=== PATIENT | male | born 1950 | race Two or more races ===

== ENCOUNTER 2016-05-20 15:49 | Emergency (ER) | payer OTHER ==
--- NOTE | 2016-05-20 16:04 | CPEKG ---
Heart Rate: 86 RR Interval: 698 P-R Interval: 124 QRSD Interval: 84 QT Interval: 336 QTC Interval: 402 P [place]: 76 QRS [place]: 32 T Wave [place]: 38 EKG Severity - NORMAL ECG - EKG Impression: SINUS RHYTHM Electronically Signed By: Young Putnam 20-May-2016 22:23:05
--- NOTE | 2016-05-20 16:15 | EDPHY ---
H & P Time Seen by Provider: 05/20/16 15:58 HPI/ROS: Chief complaint. Chest pain, back pain, leg weakness HPI. 65-year-old male with history of Parkinson's disease presents with 2 day history generalized weakness but especially his legs. He has chest discomfort with coughing. His cough is productive. He has chronic low back pain and this seems to be somewhat worse the last several days but otherwise is similar to previous back pain. He normally gets Toradol IM for his low back pain. He has no bowel or bladder symptoms. The patient says his right leg seems to be weak the left leg seems to be somewhat stiff. It is hard to walk after sitting down. He has some upper abdominal pain also with coughing. No fever. His is ill with similar symptoms and was started on antibiotic yesterday. He also notes decreased appetite and fluids. If he is not coughing he does not have any chest discomfort. He is not particularly short of breath. He does not have any new or different upper back pain ROS Constitutional. Weakness Eyes. no problems with vision ENT. Upper respiratory symptoms Cardiovascular. Chest discomfort with cough Respiratory. Productive cough without shortness of breath Abdominal. Upper abdominal pain with cough but no nausea vomiting or diarrhea. . no problems urinating MS. Exacerbation of chronic low back pain Skin. no rash Lymph. no swollen glands Neuro. Weakness to right leg stiffness to left leg making it difficult to walk Past Medical/Surgical History: Parkinson's disease Social History: , nonsmoker, no alcohol Smoking Status: Never smoked Physical Exam: General Appearance: Alert well-developed male mild distress vital signs are stable Eyes: Pupils equal and round no pallor or injection. ENT, pharynx slightly injected without exudate. Mucous membranes slightly dry Respiratory: Mild inspiratory expiratory rhonchi Cardiovascular: Regular rate and rhythm. Gastrointestinal: Mild epigastric discomfort Neurological: Awake and alert, sensory and motor exams grossly normal. Straight leg raising negative bilaterally. Great toe strength is symmetrical. Reflexes are symmetrical Skin: Warm and dry, no rashes. Musculoskeletal: Neck is supple nontender. Extremities symmetrical, full range of motion. Psychiatric: Patient is oriented X 3, there is no agitation. Constitutional: Initial Vital Signs Temperature (C) 37.0 C 05/20/16 15:55 Heart Rate 85 05/20/16 15:55 Respiratory Rate 18 05/20/16 15:55 Blood Pressure 132/84 H 05/20/16 15:55 O2 Sat (%) 95 05/20/16 15:55 O2 Delivery Mode Room Air Allergies/Adverse Reactions: No Known Allergies Allergy (Unverified 05/20/16 16:00) Home Medications: Medication Instructions Recorded Levo/Carb 05/20/16 Oseltamivir Phosphate [Tamiflu 75 75 mg PO BID #10 cap 05/20/16 mg (*)] Medical Decision Making - Diagnostics EKG Interpretation: EKG interpreted by me shows normal sinus rhythm with normal interval and axis. QRS is normal there is no significant ST elevation or depression. There is no arrhythmia. The rate is 86 Imaging: Chest x-ray interpreted by me consistent with bronchitis. 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 No evidence of cord compression or cauda equina syndrome. The MRI study is reviewed by me and discussed with Dr. Vazquez Procedures: IV normal saline with 1 L given. Toradol IV. ED Course/Re-evaluation: Re-evaluation at 6:00 p.m. patient is better after the IV Toradol. However he does complain of different sensation of leg weakness and stiffness as well as low back pain. He tells me had a normal MRI fiber 6 months ago. I am concerned about a cauda equina syndrome. MRI will be ordered. Patient is in agreement 6:20 p.m.. Positive for flu A. Given Tamiflu in the ED Re-evaluation again at 7:30 p.m. patient is stable. We discussed MRI results, treatment plan, laboratory evaluation, criteria for return importance of follow- up and further evaluation. He and his daughter expressed understanding and agreement Differential Diagnosis: I considered influenza, pneumonia, cauda equina syndrome - Data Points Laboratory Results: Laboratory Results 05/20/16 16:03 05/20/16 16:03 05/20/16 05/20/16 05/20/16 17:50 16:35 16:03 WBC RBC Hgb Hct MCV MCH MCHC RDW Plt Count MPV Neut % (Auto) Lymph % (Auto) Wirt % (Auto) Eos % (Auto) Baso % (Auto) Nucleat RBC Rel Count Absolute Neuts (auto) Absolute Lymphs (auto) Absolute Monos (auto) Absolute Eos (auto) Absolute Basos (auto) Absolute Nucleated RBC Immature Gran % Immature Gran # Sodium 139 mEq/L mEq/L (134-144) Potassium 4.4 mEq/L mEq/L (3.5-5.2) Chloride 104 mEq/L mEq/L (97-110) Carbon Dioxide 24 mEq/l mEq/l (22-31) Anion Gap 11 mEq/L mEq/L (8-16) BUN 17 mg/dL mg/dL (7-23) Creatinine 1.1 mg/dL mg/dL (0.7-1.3) Estimated GFR > 60 Glucose 130 mg/dL H mg/dL (70-100) Calcium 9.2 mg/dL mg/dL (8.5-10.4) Troponin I < 0.012 ng/mL ng/mL (0-0.034) Lipase 107.0 IU/L IU/L (23-300) Influenza Typ A,B (DFA) POSITIVE FOR FLU A H (NEGATIVE) 05/20/16 16:03 WBC 7.68 10^3/uL 10^3/uL (3.80-9.50) RBC 5.28 10^6/uL 10^6/uL (4.40-6.38) Hgb 15.4 g/dL g/dL (13.7-17.5) Hct 45.0 % % (40.0-51.0) MCV 85.2 fL fL (81.5-99.8) MCH 29.2 pg pg (27.9-34.1) MCHC 34.2 g/dL g/dL (32.4-36.7) RDW 13.2 % % (11.5-15.2) Plt Count 178 10^3/uL 10^3/uL (150-400) MPV 9.7 fL fL (8.7-11.7) Neut % (Auto) 66.3 % % (39.3-74.2) Lymph % (Auto) 19.1 % % (15.0-45.0) Wirt % (Auto) 13.5 % H % (4.5-13.0) Eos % (Auto) 0.1 % L % (0.6-7.6) Baso % (Auto) 0.3 % % (0.3-1.7) Nucleat RBC Rel Count 0.0 % % (0.0-0.2) Absolute Neuts (auto) 5.09 10^3/uL 10^3/uL (1.70-6.50) Absolute Lymphs (auto) 1.47 10^3/uL 10^3/uL (1.00-3.00) Absolute Monos (auto) 1.04 10^3/uL H 10^3/uL (0.30-0.80) Absolute Eos (auto) 0.01 10^3/uL L 10^3/uL (0.03-0.40) Absolute Basos (auto) 0.02 10^3/uL 10^3/uL (0.02-0.10) Absolute Nucleated RBC 0.00 10^3/uL 10^3/uL (0-0.01) Immature Gran % 0.7 % % (0.0-1.1) Immature Gran # 0.05 10^3/uL 10^3/uL (0.00-0.10) Sodium Potassium Chloride Carbon Dioxide Anion Gap BUN Creatinine Estimated GFR Glucose Calcium Troponin I Lipase Influenza Typ A,B (DFA) Medications Given: Discontinued Medications Acetaminophen (Tylenol) 650 mg PO EDNOW ONE Stop: 05/20/16 17:53 Last Admin: 05/20/16 17:59 Dose: 325 mg Sodium Chloride (Ns) 1,000 mls @ 0 mls/hr IV ONCE ONE PRN Reason: Wide Open Stop: 05/20/16 16:32 Last Admin: 05/20/16 16:47 Dose: 1,000 mls Ketorolac Tromethamine (Toradol) 30 mg IVP EDNOW ONE Stop: 05/20/16 16:32 Last Admin: 05/20/16 16:47 Dose: 30 mg Ondansetron HCl (Zofran) 4 mg IVP EDNOW ONE Stop: 05/20/16 19:24 Last Admin: 05/20/16 19:29 Dose: 4 mg Oseltamivir Phosphate (Tamiflu) 75 mg PO EDNOW ONE Stop: 05/20/16 18:25 Last Admin: 05/20/16 19:29 Dose: 75 mg Departure - Departure Disposition: Home, Routine, Self-Care Clinical Impression: Influenza A Condition: Good Instructions: Influenza (ED) Additional Instructions: Get plenty of rest. Drink plenty of fluids. Tylenol or ibuprofen for fever. Tamiflu for influenza. Good hand washing and careful with coughing. Return for worsening symptoms including worsening leg weakness. Recheck with your family physician in [place] in 2 days if not improving Referrals: NONE *PRIMARY CARE P,. [Unknown] - As per Instructions Prescriptions: Oseltamivir Phosphate [Tamiflu 75 mg (*)] 75 mg PO BID #10 cap
[2016-05-20 16:31] LABS: % IMMATURE GRANULYOCYTES 0.7 % (0.0-1.1); ABSOLUTE IMMATURE GRANULOCYTES 0.05 10^3/uL (0.00-0.10); ADD DIFF? NO; ADD MORPH? NO; ADD SCAN? NO; ATYPICAL LYMPHOCYTE FLAG 10 (0-99); FRAGMENT RBC FLAG 0 (0-99); HEMOGLOBIN 15.4 g/dL (13.7-17.5); LEFT SHIFT FLG 10 (0-99); LIPEMIA HEMOLYSIS FLAG 90 (0-99); MEAN CELL HEMOGLOBIN 29.2 pg (27.9-34.1); MEAN CELL HEMOGLOBIN CONCENTR. 34.2 g/dL (32.4-36.7); MEAN CELL VOLUME 85.2 fL (81.5-99.8); MEAN PLATELET VOLUME 9.7 fL (8.7-11.7); PLATELET CLUMPS FLAG 0 (0-99); PLATELET COUNT 178 10^3/uL (150-400); RED BLOOD CELL COUNT 5.28 10^6/uL (4.40-6.38); RED CELL DISTRIBUTION WIDTH 13.2 % (11.5-15.2)
[2016-05-20] MEDS ORDERED: NS 1,000 ML IV ONE (16:31)
[2016-05-20] MEDS ORDERED: KETOROLAC 30 MG/1 ML SDV IVP ONE (16:31)
[2016-05-20 16:42] LABS: ANION GAP 11 mEq/L (8-16); CALCIUM 9.2 mg/dL (8.5-10.4); CARBON DIOXIDE 24 mEq/l (22-31); CHLORIDE 104 mEq/L (97-110); CREATININE 1.1 mg/dL (0.7-1.3); GLOMERULAR FILTRATION RATE > 60; GLUCOSE 130 mg/dL (70-100); POTASSIUM 4.4 mEq/L (3.5-5.2); SODIUM 139 mEq/L (134-144)
[2016-05-20 16:58] LABS: TROPONIN I < 0.012 ng/mL (0-0.034)
[2016-05-20] MEDS ORDERED: ACETAMINOPHEN 325 MG TAB PO ONE (17:52)
[2016-05-20] MEDS ORDERED: ACETAMINOPHEN 325 MG TAB ONE (17:52)
[2016-05-20] MEDS ORDERED: OSELTAMIVIR PHOSPHATE 75 MG CAP PO ONE (18:24)
[2016-05-20] MEDS ORDERED: ONDANSETRON 4 MG/2 ML VIAL IVP ONE (19:23)
[2016-05-20 19:55] VITALS: BP 130/78; PULSE 82; RESP 16; TEMP 98.4; O2SAT 96
== END 2016-05-20 19:53 | disposition home or self-care (01) ==
DX: J10.1 Influenza due to other identified influenza virus with other respiratory manifestations (principal); G20 Parkinson's disease
CPT/HCPCS: 71020; 72148; 93005; 96361; 96374; 96375; 99285; J1885; J2405